=== PATIENT | female | born 1975 | race Asian ===

== ENCOUNTER 2017-03-20 08:39 | Emergency (ER) | payer OTHER ==
[~2017-03-20] VITALS: Ht 157.5 cm; Wt 77.3 kg
[2017-03-20 08:42] VITALS: BP 151/93; PULSE 72; RESP 16; O2SAT 96
--- NOTE | 2017-03-20 09:05 | ED.REPORT ---
HPI-Dizziness / Weakness Date of Service Mar 20, 2017 ED Provider: Chung Falcon Pt is an otherwise healthy 41 year old female who presents to the ED complaining of spinning-sensation dizziness onset this morning when she woke up. Her dizziness worsens with head movement. Additional symptoms include nausea and vomiting. She denies headache, tinnitus, sore throat, stiff neck, nasal congestion, cough , SOB, abdominal pain, diarrhea, focal numbness/weakness , or dysuria. She denies having similar symptoms previously. She also reported that she takes Dramamine for equilibrium problems when she goes on an airplane. Nursing Notes Stated Complaint: DIZZY,NAUSEA Chief Complaint: General Complaint Nursing Notes Reviewed: Yes Allergies: Coded Allergies: No Known Allergies (Unverified , 03/20/17) Scheduled PRN Meclizine (Bonine) 25 Mg Tab.chew 25 MG PO TID PRN PRN For Dizziness Ondansetron ODT (Zofran ODT) 4 Mg Tablet 4 MG PO Q4H PRN PRN For Nausea General Time Seen by MD: 09:03 Chief Complaint Vertigo Hx Obtained From: Patient Arrived By: Walk-in Onset Occurred: 1 - 4 hours ago Symptom Duration: Since onset Severity: Current: No pain currently Severity: Maximum: No pain Recent Healthcare: No recent doctor visit, No recent hospitalization Similar Sx Previous: No Past Medical History Past Medical History Denies Past Surgical History Denies Smoking History Never Smoker Social History Alcohol Use: "Social" Drug Use: Denies drug use Ambulatory Status Independent Review of Systems No tinnitus Ears / Nose / Throat: Denies: Nasal congestion, Sore throat Respiratory: Denies: Non-productive cough, Prod cough, clear, Shortness of breath GI: Reports: Nausea, Vomiting, Denies: Abdominal pain, Diarrhea Neurologic: Reports: Dizziness, Spinning sensation, Denies: Focal weakness, Headache, Numbness Complete sys rev & neg: except as marked. Female: Denies: Dysuria Musculoskeletal: Denies: Neck pain Physical Exam Initial Vital Signs Vital Signs (First) Date Time Temp Pulse Resp B/P Pulse Ox O2 Delivery O2 Flow Rate FiO2 03/20/17 08:42 36.5 72 16 151/93 96 Room Air Initial VS: Reviewed, Vital signs normal ENT: Mucous membranes moist, Conjunctiva normal Neck: Supple, Full range of motion Abdomen / GI: Soft, Non-tender Extremities: Vascular intact, Neuro intact, No swelling Skin: Warm, Dry, No cyanosis Psychiatric: Mood/affect normal, Behavior normal, Normal thought content General/Constitutional: Awake, Alert, Cooperative, Not toxic appearing Distress / Hydration: Positive: Distress mild Head / Eyes: Atraumatic, Normocephalic, PERRL no vertical nystagmus Brianne Hallpike: inducible vertigo and mild nystagmus to the L Respiratory / Chest: Breath sounds NL, Breath sounds = bilat, No respiratory distress, No rales, No rhonchi, No wheezing Cardiovascular: Heart rate NL, Regular rhythm, Heart sounds NL, No murmurs Neurologic: Oriented X3, Speech NL, No motor deficits, No sensory deficits, CN II - XII intact, Cerebellar NL, Memory NL, Gait NL Normal tandem gait Interpretation & Diagnostics Lab Results Interpretation Result Diagram: 03/20/17 0910 03/20/17 0910 Test 03/20/17 09:10 White Blood Count 7.4th/mm3 (3.8-10.1) Red Blood Count 5.07mil/mm3 (3.90-5.20) Hemoglobin 14.2g/dL (12.0-15.6) Hematocrit 42.1% (35.0-46.0) Mean Corpuscular Volume 83.0fL (81-100) Mean Corpuscular Hemoglobin 28.0pg (27.0-35.0) Mean Corpuscular Hemoglobin Concent 33.7% (32.0-37.0) Red Cell Distribution Width 12.9% (12.3-15.4) Platelet Count 286bil/L (150-400) Neutrophils (%) (Auto) 74.4% (40-74) Lymphocytes (%) (Auto) 17.9% (14-46) Monocytes (%) (Auto) 5.7% (4-12) Eosinophils (%) (Auto) 1.2% (0-5) Basophils (%) (Auto) 0.5% (0-3) Sodium Level 137mEq/L (134-144) Potassium Level 4.2mEq/L (3.5-5.2) Chloride Level 102mEq/L (97-108) Carbon Dioxide Level 23mmol/L (18-29) Blood Urea Nitrogen 12mg/dL (6-24) Creatinine 0.55mg/dL (0.57-1.00) Estimat Glomerular Filtration Rate 173mL/min (>59) Glucose Level 141mg/dL (60-99) Calcium Level 8.9mg/dL (8.5-10.1) Total Bilirubin 0.2mg/dL (0.0-1.2) Aspartate Amino Transf (AST/SGOT) 12U/L (0-50) Alanine Aminotransferase (ALT/SGPT) 13U/L (0-32) Alkaline Phosphatase 50U/L (25-150) Total Protein 7.6g/dL (6.4-8.4) Albumin 4.1g/dL (3.4-5.0) Lipase 49U/L (13-60) Re-Eval/Medical Decision Med Decision/Clinical Course Symptoms are mild. Patient is neurologically intact. [place]-Hallpike positive on the left. Significant improvement after meclizine and Zofran. Labs reassuring further secondary causes. Unlikely to be acute CVA. Discharged with Zofran and meclizine. Return and follow-up precautions given Source of Hx: Old records Re-Evaluation/Progress #1: Time of Eval: 09:42 Patient Status: Condition improved Re-Evaluation/Progress Note: Pt rechecked. [place] Hallpike positive on the L. Re-Evaluation/Progress #2: Time of Eval: 10:03 Patient Status: Condition improved Re-Evaluation/Progress Note: Patient rechecked. Discussed plan for discharge. Patient understands and agrees with plan. F/U instructions and RTER warnings given. All questions addressed at this time. Counseled Regarding: Diagnosis, Lab results, Need for follow-up, When/why to return to ED Patient Discharge & Departure Impression: Primary Impression: Peripheral vertigo Laterality: unspecified laterality Qualified Code: H81.399 - Other peripheral vertigo, unspecified ear Disposition: Home Discharge Condition All VS Reviewed: Yes Condition: Stable Patient Instructions: Benign Paroxysmal Positional Vertigo (ED) Additional Instructions: Your evaluation in the ER is reassuring. We suspect you have peripheral vertigo. Take meclizine and Zofran as prescribed. Home and rest. Call your regular doctor today for follow-up appointment in the next few days. Return to the closest ER immediately if you develop progressive neurologic deficits which may include slurred speech, facial droop, numbness, weakness or paralysis in the arms or legs, inability to walk, severe or intense headache, or other concerns. Scribe Attestation Portions of this note were transcribed by Elisabet Rain and Braden Sanders. I, Dr. Falcon, personally performed the history, physical exam and medical decision-making; I reviewed and confirmed the accuracy of the information in the transcribed note. Chung Falcon DO Mar 20, 2017 09:05 Elisabet Rain Mar 20, 2017 09:12 BRADEN SANDERS Mar 20, 2017 09:40
[2017-03-20] MEDS ORDERED: Ondansetron 2 mg/mL 2 mL Inj IVPUSH PRN (09:15)
[2017-03-20] MEDS ORDERED: 0.9% Sodium Chloride 1,000 ML IV ONE (09:15)
[2017-03-20 09:24] LABS: BASOPHILS % (AUTO) 0.5 % (0-3); EOSINOPHILS % (AUTO) 1.2 % (0-5); MONOCYTES % (AUTO) 5.7 % (4-12); NEUTROPHILS % (AUTO) 74.4 % (40-74); Platelet Count 286 bil/L (150-400)
[2017-03-20] MEDS ORDERED: MECL-114 PO (10:15)
[2017-03-20] MEDS ORDERED: ONDA4TAB9 PO (10:30)
[2017-03-20 10:37] VITALS: BP 137/87; PULSE 62; RESP 16; O2SAT 96
== END 2017-03-20 10:30 | disposition home or self-care (01) ==
LOC: SED 08:39
DX: H81.399 Other peripheral vertigo, unspecified ear (principal)
CPT/HCPCS: 36415; 80053; 81025; 83690; 85025; 96361; 96374; 99284; J2405; J7030